=== PATIENT | female | born 1950 | race Caucasian/White ===

== ENCOUNTER 2016-08-17 03:58 | Emergency (ER) | payer BC, MEDICARE ==
[2016-08-17 04:06] VITALS: BP 131/59
--- NOTE | 2016-08-17 04:44 | EDM.PDOC ---
ED HPI GENERAL MEDICAL PROBLEM - General Chief Complaint: General Stated Complaint: Burning Sensation in body Time Seen by Provider: 08/17/16 04:25 Source of Information: Reports: Patient History Limitations: Reports: No limitations - History of Present Illness INITIAL COMMENTS - FREE TEXT/NARRATIVE: 66 YO WF presents to ER with an episode of feeling a burning sensation allover her body which lasted for approximately 3 minutes. Pt reports the last time she had an episode similar to this was 2 years ago when she was diagnosed with atrial fibrillation. Pt denies any chest pain, shortness of breath, diaphoresis , dizziness or palpitations. Pt reports she was recently on a 30 day event/ holter monitor by her perioperative nurse and was told there was nothing wrong with her heart. Pt was started on amoxil for upper respiratory tract infection 5 days ago and is wondering if that could have been the cause of her symptoms. Pt denies any fever/chills and states her URI symptoms are improving. Pt reports a history of anxiety/panic attacks in the past as well. Onset: today Onset Date: 08/17/16 Onset Time: 03:30 Duration: Minutes:, Resolved prior to arrival Location: Reports: generalized Quality: Reports: Burning Severity: mild Improves with: Reports: None Worsens with: Reports: None Associated Symptoms: Reports: no other symptoms - Related Data Allergies Allergy/AdvReac Type Severity Reaction Status Date / Time lisinopril Allergy Cough Verified 08/17/16 04:01 Home Meds: Home Meds Olmesartan Medoxomil [Benicar] 10 mg PO DAILY 05/13/13 [History] Escitalopram [Lexapro] 10 mg PO DAILY 05/21/13 [History] Metoprolol Tartrate 12.5 mg PO BEDTIME 05/21/13 [History] Cinnamon Bark [Cinnamon] 500 mg PO DAILY 07/01/14 [History] Fish Oil/[place]-3 Fatty Acids [Fish Oil] 3 gm PO DAILY 07/01/14 [History] Magnesium Oxide/Mag AA Chelate [Magnesium] 300 mg PO DAILY 07/01/14 [History] Multivitamin [Multiple Vitamins] 1 each PO DAILY 07/01/14 [History] Cholecalciferol (Vitamin D3) [Vitamin D3] 50,000 unit PO ASDIRECTED 12/19/15 [ History] ALPRAZolam [Alprazolam] 0.5 mg PO DAILY PRN 01/04/17 [History] Diltiazem [Cardizem CD] 120 mg PO DAILY 05/01/16 [History] Rivaroxaban [Xarelto] 20 mg PO DAILY 05/01/16 [History] Amoxicillin [Amoxicillin] 500 mg PO TID 08/17/16 [History] Past Medical History HEENT History: Reports: Impaired vision Cardiovascular History: Reports: Afib, Arrhythmia, Hypertension, Other (see below) Other Cardiovascular History: States she has "an extra beat." Psychiatric History: Reports: Anxiety, Depression Endocrine/Metabolic History: Reports: Obesity/BMI 30+ - Infectious Disease History Infectious Disease History: Reports: Chicken pox, Mumps - Past Surgical History Cardiovascular Surgical History: Reports: None GI Surgical History: Reports: Cholecystectomy Female Surgical History: Reports: Hysterectomy Social & Family History - Family History HEENT: Reports: None Cardiac: Reports: Other (see below) (Father with diabetes heart disease and hypertension, sister with heart disease, brother with heart disease hypertension, asthma,) Respiratory: Reports: Asthma GI: Reports: None : Reports: None OBGYN: Reports: None Neurological: Reports: None Psychiatric: Reports: None Endocrine/Metabolic: Reports: Diabetes, type II Immunologic: Reports: None Dermatologic: Reports: None Oncologic: Reports: None - Tobacco Use Smoking Status *Q: Never Smoker Years of Tobacco use: 2 Second Hand Smoke Exposure: No - Caffeine Use Caffeine Use Comment: rare coffee use - Alcohol Use Days Per Week of Alcohol Use: 0 - Recreational Drug Use Recreational Drug Use: No - Living Situation & Occupation Living situation: Reports: , with spouse ED ROS GENERAL - Review of Systems Review Of Systems: See Below Constitutional: Reports: no symptoms HEENT: Reports: Rhinitis Respiratory: Reports: No Symptoms Cardiovascular: Reports: No symptoms Endocrine: Reports: no symptoms GI/Abdominal: Reports: No symptoms : Reports: no symptoms Musculoskeletal: Reports: no symptoms Skin: Reports: no symptoms Neurological: Reports: No Symptoms Psychiatric: Reports: No symptoms Hematologic/Lymphatic: Reports: no symptoms Immunologic: Reports: no symptoms ED EXAM, GENERAL - Physical Exam Exam: See Below Exam Limited By: No limitations General Appearance: alert, WD/WN, no apparent distress Eye Exam: bilateral eye: PERRL Ears: normal external exam, normal canal, hearing grossly normal, normal TMs Ear Exam: bilateral ear: auricle normal, canal normal, TM normal Nose: normal inspection, normal mucosa, no blood Throat/Mouth: Normal inspection, Normal lips, Normal teeth, Normal gums, Normal oropharynx, Normal voice, No airway compromise Head: atraumatic, normocephalic Neck: normal inspection, supple, non-tender, full range of motion Respiratory/Chest: no respiratory distress, lungs clear, normal breath sounds, no accessory muscle use, chest non-tender Cardiovascular: normal peripheral pulses, regular rate, rhythm, no edema, no gallop, no JVD, no murmur, no rub GI/Abdominal: normal bowel sounds, soft, non tender, no organomegaly, no distention, no abnormal bruit, no mass (Female) Exam: Normal external exam, Normal speculum exam, Normal bimanual exam Back Exam: normal inspection, full range of motion, NT Extremities: normal inspection, normal range of motion, non-tender, normal capillary refill, no pedal edema Neurological: alert, oriented, CN II-XII intact, normal cognition, normal gait, normal reflexes, no motor/sensory deficits Psychiatric: normal affect, normal mood Skin Exam: Warm, Dry, Intact, Normal color, No rash Lymphatic: no adenopathy EKG INTERPRETATION EKG Date: 08/17/16 Time: 04:04 Rhythm: NSR Rate (beats/min): 68 [place]: normal P-wave: present QRS: normal ST-T: normal QT: normal Comparison: NA - no prior EKG Course - Vital Signs Last Recorded V/S: Last Vital Signs Temp 36.4 C 08/17/16 04:03 Pulse 72 08/17/16 04:03 Resp 18 08/17/16 04:03 BP 131/59 L 08/17/16 04:03 Pulse Ox 96 08/17/16 04:03 Departure - Departure Time of Disposition: 04:47 Disposition: Home, Self-Care 01 Condition: good Clinical Impression: Anxiety Instructions: Hyperventilation Referrals: Maria M Barnes PA-C [Physician] - Forms: ED Department Discharge - Assessment/Plan Assessment:: 1. burning sensation in body 2. anxiety Plan: 1. follow up in clinic for further evaluation and treatment 2. return to ER for worsening or continued symptoms
== END 2016-08-17 05:00 | disposition home or self-care (01) ==
LOC: KA.ED 03:58
DX: F41.9 Anxiety disorder, unspecified (principal); I48.91 Unspecified atrial fibrillation; I10 Essential (primary) hypertension; F32.9 Major depressive disorder, single episode, unspecified; E66.9 Obesity, unspecified; Z68.41 Body mass index [BMI] 40.0-44.9, adult; Z88.8 Allergy status to other drugs, medicaments and biological substances; Z79.899 Other long term (current) drug therapy; Z90.710 Acquired absence of both cervix and uterus; Z90.49 Acquired absence of other specified parts of digestive tract
CPT/HCPCS: 93005; 99283

== ENCOUNTER 2017-10-28 02:15 | Emergency (ER) | payer BC, MEDICARE ==
[2017-10-28 02:18] VITALS: BP 148/81
--- NOTE | 2017-10-28 02:59 | EDM.PDOC ---
ED HPI GENERAL MEDICAL PROBLEM - General Chief Complaint: General Stated Complaint: anxiety Time Seen by Provider: 10/28/17 02:38 Source of Information: Reports: Patient History Limitations: Reports: No Limitations - History of Present Illness INITIAL COMMENTS - FREE TEXT/NARRATIVE: Patient is a 67-year-old female who presents to the emergency department this morning with a complaint of anxiety attack. Patient states that her is having issues with his family and so she feels anxious. States she took a Lexapro at midnight, went to sleep and awoke at 145 a.m. where she took another Lexapro. Patient decided to present to the emergency department. Patient states she is actually feeling better now. Patient denies chest pain, shortness of breath, fever, nausea, vomiting, diarrhea, thoughts of hurting self or others. Onset: Gradual Severity: Mild Improves with: Reports: Medication Worsens with: Reports: None Associated Symptoms: Reports: No Other Symptoms - Related Data Allergies Allergy/AdvReac Type Severity Reaction Status Date / Time lisinopril Allergy Cough Verified 10/28/17 02:17 Home Meds: Home Meds Olmesartan Medoxomil [Benicar] 10 mg PO DAILY 05/13/13 [History] Escitalopram [Lexapro] 10 mg PO DAILY 05/21/13 [History] Metoprolol Tartrate 12.5 mg PO BEDTIME 05/21/13 [History] Cinnamon Bark [Cinnamon] 500 mg PO DAILY 07/01/14 [History] Fish Oil/[place]-3 Fatty Acids [Fish Oil] 3 gm PO DAILY 07/01/14 [History] Magnesium Oxide/Mag AA Chelate [Magnesium] 300 mg PO DAILY 07/01/14 [History] Multivitamin [Multiple Vitamins] 1 each PO DAILY 07/01/14 [History] Cholecalciferol (Vitamin D3) [Vitamin D3] 50,000 unit PO ASDIRECTED 12/19/15 [ History] ALPRAZolam [Alprazolam] 0.5 mg PO DAILY PRN 05/01/16 [History] Diltiazem [Cardizem CD] 120 mg PO DAILY 05/01/16 [History] Rivaroxaban [Xarelto] 20 mg PO DAILY 05/01/16 [History] Amoxicillin 500 mg PO TID 08/17/16 [History] Past Medical History HEENT History: Reports: Impaired Vision Cardiovascular History: Reports: Afib, Arrhythmia, Hypertension, Other (See Below) Other Cardiovascular History: States she has "an extra beat." Psychiatric History: Reports: Anxiety, Depression Endocrine/Metabolic History: Reports: Obesity/BMI 30+ - Infectious Disease History Infectious Disease History: Reports: Chicken Pox, Mumps - Past Surgical History Cardiovascular Surgical History: Reports: None GI Surgical History: Reports: Cholecystectomy Female Surgical History: Reports: Hysterectomy Social & Family History - Family History HEENT: Reports: None Cardiac: Reports: Other (See Below) Respiratory: Reports: Asthma GI: Reports: None : Reports: None OBGYN: Reports: None Neurological: Reports: None Psychiatric: Reports: None Endocrine/Metabolic: Reports: Diabetes, type II Immunologic: Reports: None Dermatologic: Reports: None Oncologic: Reports: None - Caffeine Use Caffeine Use Comment: rare coffee use - Living Situation & Occupation Living situation: Reports: , with Spouse ED ROS GENERAL - Review of Systems Review Of Systems: ROS reveals no pertinent complaints other than HPI. Constitutional: Reports: No Symptoms HEENT: Reports: No Symptoms Respiratory: Reports: No Symptoms Cardiovascular: Reports: No Symptoms Endocrine: Reports: No Symptoms GI/Abdominal: Reports: No Symptoms : Reports: No Symptoms Musculoskeletal: Reports: No Symptoms Skin: Reports: No Symptoms Neurological: Reports: No Symptoms Psychiatric: Reports: Anxiety. Denies: Agitation, Confusion, Hallucinations, Homicidal Ideation, Suicidal Ideation Hematologic/Lymphatic: Reports: No Symptoms Immunologic: Reports: No Symptoms ED EXAM, GENERAL - Physical Exam Exam: See Below Exam Limited By: No Limitations General Appearance: Alert, WD/WN, No Apparent Distress Eye Exam: Bilateral Eye: Normal Inspection Throat/Mouth: Normal Inspection, Normal Oropharynx, No Airway Compromise Head: Atraumatic, Normocephalic Neck: Normal Inspection Respiratory/Chest: No Respiratory Distress, Lungs Clear, Normal Breath Sounds, No Accessory Muscle Use, Chest Non-Tender Cardiovascular: Normal Peripheral Pulses, Regular Rate, Rhythm, No Murmur GI/Abdominal: Normal Bowel Sounds, Soft, Non-Tender Back Exam: Normal Inspection Extremities: Normal Inspection, No Pedal Edema Neurological: Alert, Oriented, CN II-XII Intact, No Motor/Sensory Deficits Psychiatric: Normal Affect, Normal Mood, Other (Resting comfortably) Skin Exam: Warm, Dry, Intact, Normal Color, No Rash Course - Vital Signs Last Recorded V/S: Last Vital Signs Temp 97.3 F 10/28/17 02:17 Pulse 78 10/28/17 02:17 Resp 16 10/28/17 02:17 BP 148/81 H 10/28/17 02:17 Pulse Ox 93 L 10/28/17 02:17 - Re-Assessments/Exams Free Text/Narrative Re-Assessment/Exam: 10/28/17 03:09 Patient afebrile, nontoxic appearing, vital signs stable. Feels better after discussing her situation with me and is requesting to go home. Patient works at [employer] [employer] and is working this morning and assured me that she will discuss her condition with the provider there. Departure - Departure Time of Disposition: 03:10 Disposition: Home, Self-Care 01 Condition: Good Clinical Impression: Anxiety - Discharge Information Instructions: Panic Attack, [id number], Generalized Anxiety Disorder, Adult Referrals: Maria M Barnes PA-C [Primary Care Provider] - Additional Instructions: Follow-up at [facility]. Return to emergency department if symptoms continue or worsen. - Assessment/Plan Assessment:: Anxiety Plan: Follow-up at [facility]
== END 2017-10-28 03:15 | disposition home or self-care (01) ==
LOC: KA.ED 02:15
DX: F41.9 Anxiety disorder, unspecified (principal); I48.91 Unspecified atrial fibrillation; F32.9 Major depressive disorder, single episode, unspecified; Z88.8 Allergy status to other drugs, medicaments and biological substances; Z79.899 Other long term (current) drug therapy
CPT/HCPCS: 99283

== ENCOUNTER 2019-10-19 20:19 | Emergency (ER) | payer BC ==
--- NOTE | 2019-10-19 20:51 | EDM.PDOC ---
ED HPI GENERAL MEDICAL PROBLEM - General Chief Complaint: General Stated Complaint: Rapid heart rate Time Seen by Provider: 10/19/19 20:46 Source of Information: Reports: Patient History Limitations: Reports: No Limitations - History of Present Illness INITIAL COMMENTS - FREE TEXT/NARRATIVE: Patient is a 69-year-old female who presents to the emergency department this evening via private vehicle with a complaint of rapid heart rate. Patient states that she took a pill that was given to her by the local chiropractor for anxiety. Reading the ingredients. There is ginseng and other stimulants. does have a history of atrial fibrillation is currently on metoprolol. States she took the medicine about 1900 this evening, shortly thereafter she felt shaky and heart racing. She states that she did not have shortness of breath, chest pain, diaphoresis, nausea, vomiting, or headache. Upon presentation to emergency department, symptoms gradually subsided and vital s igns were within normal limits. Onset: Today Onset Time: 19:00 Duration: Hour(s):, Improving Location: Reports: Chest Quality: Reports: Other (Denies pain) Severity: Mild Improves with: Reports: Other (Spontaneously) Associated Symptoms: Reports: No Other Symptoms. Denies: Chest Pain, Cough, Diaphoresis, Fever/Chills, Nausea/Vomiting, Shortness of Breath, Weakness - Related Data Allergies Allergy/AdvReac Type Severity Reaction Status Date / Time lisinopril Allergy Cough Verified 10/19/19 20:21 Home Meds: Home Meds Olmesartan Medoxomil [Benicar] 10 mg PO DAILY 05/13/13 [History] Escitalopram [Lexapro] 10 mg PO DAILY 05/21/13 [History] Metoprolol Tartrate 12.5 mg PO DAILY 05/21/13 [History] Cinnamon Bark [Cinnamon] 500 mg PO DAILY 07/01/14 [History] Fish Oil/[place]-3 Fatty Acids [Fish Oil 1,000 MG] 3,600 mg PO DAILY 07/01/14 [History] Magnesium Oxide/Magnesium [Magnesium] 300 mg PO DAILY 07/01/14 [History] ALPRAZolam [Alprazolam] 0.5 mg PO BID PRN 05/01/16 [History] Diltiazem [Cardizem CD] 120 mg PO DAILY 05/01/16 [History] Rivaroxaban [Xarelto] 20 mg PO DAILY 05/01/16 [History] Ubidecarenone [Co Q-10] 100 mg PO DAILY 11/27/17 [History] Vitamin A 1 tab PO DAILY 11/27/17 [History] Vitamin B Complex [B Complex] 2 tab PO DAILY 11/27/17 [History] Vitamin E 1 tab PO DAILY 11/27/17 [History] Ascorbate Calcium [Vitamin C] 500 mg PO DAILY 03/13/18 [History] Cholecalciferol (Vitamin D3) [Vitamin D3] 5,000 unit PO DAILY 03/13/18 [History] Hydrocort/Neomycin/Polymyxin B [Cortisporin Otic Soln] 5 drop EARBOTH DAILY PRN 03/13/18 [History] Past Medical History HEENT History: Reports: Cataract, Impaired Vision Cardiovascular History: Reports: Afib, Arrhythmia, Hypertension Other Cardiovascular History: States she has "an extra beat." Respiratory History: Reports: Bronchitis, Recurrent, Pneumonia, Recurrent Gastrointestinal History: Reports: None Genitourinary History: Reports: None Musculoskeletal History: Reports: None Neurological History: Reports: None Psychiatric History: Reports: Anxiety, Depression, Panic Attack Endocrine/Metabolic History: Reports: Obesity/BMI 30+, Vitamin D Deficiency Hematologic History: Reports: None Immunologic History: Reports: None Oncologic (Cancer) History: Reports: None Dermatologic History: Reports: None - Infectious Disease History Infectious Disease History: Reports: Chicken Pox, Measles, Mononucleosis, Pertussis (Whooping Cough) - Past Surgical History Head Surgeries/Procedures: Reports: None HEENT Surgical History: Reports: Cataract Surgery, Oral Surgery Cardiovascular Surgical History: Reports: None Respiratory Surgical History: Reports: None GI Surgical History: Reports: Cholecystectomy Female Surgical History: Reports: Hysterectomy Endocrine Surgical History: Reports: None Neurological Surgical History: Reports: None Musculoskeletal Surgical History: Reports: None Oncologic Surgical History: Reports: None Dermatological Surgical History: Reports: None Social & Family History - Family History HEENT: Reports: None Cardiac: Reports: Other (See Below) Respiratory: Reports: Asthma GI: Reports: None : Reports: None OBGYN: Reports: None Neurological: Reports: None Psychiatric: Reports: None Endocrine/Metabolic: Reports: Diabetes, type II Immunologic: Reports: None Dermatologic: Reports: None Oncologic: Reports: None - Caffeine Use Caffeine Use: Reports: Coffee Caffeine Use Comment: rare coffee use - Living Situation & Occupation Living situation: Reports: , with Spouse ED ROS GENERAL - Review of Systems Review Of Systems: Comprehensive ROS is negative, except as noted in HPI. Constitutional: Reports: No Symptoms HEENT: Reports: No Symptoms Respiratory: Reports: No Symptoms Cardiovascular: Reports: Palpitations Endocrine: Reports: No Symptoms GI/Abdominal: Reports: No Symptoms : Reports: No Symptoms Musculoskeletal: Reports: No Symptoms Skin: Reports: No Symptoms Neurological: Reports: No Symptoms Psychiatric: Reports: No Symptoms Hematologic/Lymphatic: Reports: No Symptoms Immunologic: Reports: No Symptoms ED EXAM, GENERAL - Physical Exam Exam: See Below Exam Limited By: No Limitations General Appearance: Alert, WD/WN, No Apparent Distress Nose: Normal Inspection Throat/Mouth: Normal Inspection, Normal Oropharynx, No Airway Compromise Head: Atraumatic, Normocephalic Respiratory/Chest: No Respiratory Distress, Lungs Clear, Normal Breath Sounds, No Accessory Muscle Use, Chest Non-Tender Cardiovascular: Regular Rate, Rhythm, No Murmur GI/Abdominal: Normal Bowel Sounds, Soft, Non-Tender Back Exam: Normal Inspection Extremities: Normal Inspection, No Pedal Edema Neurological: Alert, Oriented, Normal Cognition Psychiatric: Normal Affect, Normal Mood Skin Exam: Warm, Dry, Intact, Normal Color, No Rash Course - Vital Signs Last Recorded V/S: Last Vital Signs Temp 97.3 F 10/19/19 20:37 Pulse 85 10/19/19 20:37 Resp 24 H 10/19/19 20:37 BP 157/90 H 10/19/19 20:37 Pulse Ox 96 10/19/19 20:37 - Orders/Labs/Meds Orders: Active Orders 24 hr Category Date Time Status EKG Documentation Completion [RC] ASDIRECTED Care 10/19/19 20:41 Active EKG 12 Lead [EK] Urgent Ther 10/19/19 20:25 Ordered - Re-Assessments/Exams Free Text/Narrative Re-Assessment/Exam: 10/19/19 20:51 Patient afebrile, vital signs stable, nontoxic appearing, symptoms completely resolved. Discussed in depth with patient taking any kind of [id number] stimulants that could cause recurrent atrial fibrillation. Patient received this medication from local chiropractor. Patient agrees to not continue taking medication. Patient will follow-up with PCP. Departure - Departure Time of Disposition: 20:52 Disposition: Home, Self-Care 01 Clinical Impression: Palpitation - Discharge Information Referrals: Maria M Barnes PA-C [Primary Care Provider] - Additional Instructions: Discontinue [id number] medication. Take prescribed medication as directed. Follow-up with [facility] in 2 days. Return to emergency department sooner if symptoms continue or worsen. Sepsis Event Note (ED) - Evaluation Sepsis Screening Result: No Definite Risk - Focused Exam Vital Signs: Vital Signs Temp Pulse Resp BP Pulse Ox 10/19/19 20:37 97.3 F 85 24 H 157/90 H 96 - My Orders Last 24 Hours: My Active Orders 10/19/19 20:25 EKG 12 Lead [EK] Urgent 10/19/19 20:41 EKG Documentation Completion [RC] ASDIRECTED - Assessment/Plan Last 24 Hours: My Active Orders 10/19/19 20:25 EKG 12 Lead [EK] Urgent 10/19/19 20:41 EKG Documentation Completion [RC] ASDIRECTED Assessment:: Palpitations Plan: Follow-up with PCP
[2019-10-19 21:13] VITALS: BP 130/66; PULSE 62
== END 2019-10-19 21:08 | disposition home or self-care (01) ==
LOC: KA.ED 20:19
DX: R00.2 Palpitations (principal); I10 Essential (primary) hypertension; I48.91 Unspecified atrial fibrillation; F41.9 Anxiety disorder, unspecified; F32.9 Major depressive disorder, single episode, unspecified; E66.9 Obesity, unspecified; Z68.41 Body mass index [BMI] 40.0-44.9, adult; Z88.8 Allergy status to other drugs, medicaments and biological substances; Z79.899 Other long term (current) drug therapy; Z79.01 Long term (current) use of anticoagulants
CPT/HCPCS: 99284-25

== ENCOUNTER 2021-02-08 02:02 | Emergency (ER) | payer BC ==
--- NOTE | 2021-02-08 02:50 | EDM.PDOC ---
ED HPI GENERAL MEDICAL PROBLEM - General Chief Complaint: General Stated Complaint: PALPITATIONS Time Seen by Provider: 02/08/21 02:15 Source of Information: Reports: Patient History Limitations: Reports: No Limitations - History of Present Illness INITIAL COMMENTS - FREE TEXT/NARRATIVE: 70 YO WF PRESENTS TO ER COMPLAINING OF PALPITATIONS THAT BEGAN AROUND 11PM TONIGHT. PT REPORTS HER PALPITATIONS LASTED ON/OFF FOR LESS THAN AN HOUR. PT DENIES RACING HEART BEAT. PT REPORTS SYMPTOMS HAVE RESOLVED. PT CALLED HER AT WORK AND HE SUGGESTED SHE GO TO ER FOR FURTHER EVALUATION. PT WITH HISTORY OF SIMILAR IN THE PAST WITH EACH OF THESE BEGIN RELATED TO SOME ANXIETY COMPONENT. PT TAKES VISTARIL WHEN SYMPTOMS OCCUR. PT REPORTS TAKING HER VISTARIL THIS EVENING AND SHE BELIEVES THAT'S WHY SHE IS FEELING BETTER. PT DENIES CHEST PAIN, SHORTNESS OF BREATH, DIAPHORESIS, NAUSEA/VOMITING OR DIZZINESS. PT STATES SHE FEELS BETTER AND WANTS TO GO HOME. REQUESTING A WORK EXCUSE. PT ALERT AND ORIENTED X 4. Onset Date: 02/08/21 Duration: Hour(s): (4) Location: Reports: Generalized Severity: Mild Improves with: Reports: Medication Worsens with: Reports: None Associated Symptoms: Reports: No Other Symptoms. Denies: Chest Pain, Diaphoresis, Nausea/Vomiting, Shortness of Breath, Syncope - Related Data Allergies Allergy/AdvReac Type Severity Reaction Status Date / Time lisinopril Allergy Cough Verified 02/08/21 02:43 Home Meds: Home Meds Olmesartan Medoxomil [Benicar] 10 mg PO DAILY 05/13/13 [History] Escitalopram [Lexapro] 10 mg PO DAILY 05/21/13 [History] Metoprolol Tartrate 12.5 mg PO DAILY 05/21/13 [History] Cinnamon Bark [Cinnamon] 500 mg PO DAILY 07/01/14 [History] Fish Oil/[place]-3 Fatty Acids [Fish Oil 1,000 MG] 3,600 mg PO DAILY 07/01/14 [History] Magnesium Oxide/Magnesium [Magnesium] 300 mg PO DAILY 07/01/14 [History] Diltiazem [Cardizem CD] 120 mg PO DAILY 05/01/16 [History] Rivaroxaban [Xarelto] 20 mg PO DAILY 05/01/16 [History] Ubidecarenone [Co Q-10] 100 mg PO DAILY 11/27/17 [History] Vitamin A 1 tab PO DAILY 11/27/17 [History] Vitamin B Complex [B Complex] 2 tab PO DAILY 11/27/17 [History] Vitamin E (Dl,Tocopheryl Acet) [Vitamin E] 1 tab PO DAILY 11/27/17 [History] Ascorbate Calcium [Vitamin C] 500 mg PO DAILY 03/13/18 [History] Cholecalciferol (Vitamin D3) [Vitamin D3] 5,000 unit PO DAILY 03/13/18 [History] Hydrocort/Neomycin/Polymyxin B [Cortisporin Otic Soln] 5 drop EARBOTH DAILY PRN 03/13/18 [History] hydrOXYzine pamoate [Hydroxyzine Pamoate] 25 mg PO QID PRN 10/19/19 [History] Past Medical History HEENT History: Reports: Cataract, Impaired Vision Cardiovascular History: Reports: Afib, Arrhythmia, Hypertension Other Cardiovascular History: States she has "an extra beat." Respiratory History: Reports: Bronchitis, Recurrent, Pneumonia, Recurrent Gastrointestinal History: Reports: None Genitourinary History: Reports: None Musculoskeletal History: Reports: None Neurological History: Reports: None Psychiatric History: Reports: Anxiety, Depression, Panic Attack Endocrine/Metabolic History: Reports: Obesity/BMI 30+, Vitamin D Deficiency Hematologic History: Reports: None Immunologic History: Reports: None Oncologic (Cancer) History: Reports: None Dermatologic History: Reports: None - Infectious Disease History Infectious Disease History: Reports: Chicken Pox, Measles, Mononucleosis, Pertussis (Whooping Cough) - Past Surgical History Head Surgeries/Procedures: Reports: None HEENT Surgical History: Reports: Cataract Surgery, Oral Surgery Cardiovascular Surgical History: Reports: None Respiratory Surgical History: Reports: None GI Surgical History: Reports: Cholecystectomy Female Surgical History: Reports: Hysterectomy Endocrine Surgical History: Reports: None Neurological Surgical History: Reports: None Musculoskeletal Surgical History: Reports: None Oncologic Surgical History: Reports: None Dermatological Surgical History: Reports: None Social & Family History - Family History HEENT: Reports: None Cardiac: Reports: Other (See Below) Respiratory: Reports: Asthma GI: Reports: None : Reports: None OBGYN: Reports: None Neurological: Reports: None Psychiatric: Reports: None Endocrine/Metabolic: Reports: Diabetes, type II Immunologic: Reports: None Dermatologic: Reports: None Oncologic: Reports: None - Caffeine Use Caffeine Use: Reports: None Caffeine Use Comment: rare coffee use - Living Situation & Occupation Living situation: Reports: , with Spouse ED ROS GENERAL - Review of Systems Review Of Systems: See Below Constitutional: Reports: No Symptoms HEENT: Reports: No Symptoms Respiratory: Reports: No Symptoms Cardiovascular: Reports: Palpitations Endocrine: Reports: No Symptoms GI/Abdominal: Reports: No Symptoms : Reports: No Symptoms Musculoskeletal: Reports: No Symptoms Skin: Reports: No Symptoms Neurological: Reports: No Symptoms Psychiatric: Reports: Anxiety Hematologic/Lymphatic: Reports: No Symptoms Immunologic: Reports: No Symptoms ED EXAM, GENERAL - Physical Exam Exam: See Below Exam Limited By: No Limitations General Appearance: Alert, WD/WN, No Apparent Distress Ears: Normal External Exam, Normal Canal, Hearing Grossly Normal, Normal TMs Ear Exam: Bilateral Ear: Auricle Normal, Canal Normal, TM normal Nose: Normal Inspection, Normal Mucosa, No Blood Throat/Mouth: Normal Inspection, Normal Lips, Normal Teeth, Normal Gums, Normal Oropharynx, Normal Voice, No Airway Compromise Head: Atraumatic, Normocephalic Neck: Normal Inspection, Supple, Non-Tender, Full Range of Motion Respiratory/Chest: No Respiratory Distress, Lungs Clear, Normal Breath Sounds, No Accessory Muscle Use, Chest Non-Tender Cardiovascular: Normal Peripheral Pulses, Regular Rate, Rhythm, No Edema, No Gallop, No JVD, No Murmur, No Rub GI/Abdominal: Normal Bowel Sounds, Soft, Non-Tender, No Organomegaly, No Distention, No Abnormal Bruit, No Mass Back Exam: Normal Inspection, Full Range of Motion, NT Extremities: Normal Inspection, Normal Range of Motion, Non-Tender, Normal Capillary Refill, No Pedal Edema Neurological: Alert, Oriented, CN II-XII Intact, Normal Cognition, Normal Gait, No Motor/Sensory Deficits Psychiatric: Normal Affect, Anxious Skin Exam: Warm, Dry, Intact, Normal Color, No Rash Lymphatic: No Adenopathy #1 Interpretation EKG Date: 02/08/21 Time: 02:28 Rhythm: NSR Rate (Beats/Min): 61 [place]: Normal P-Wave: Present QRS: Normal ST-T: Normal QT: Normal Comparison: No Change Course - Orders/Labs/Meds Orders: Active Orders 24 hr Category Date Time Status EKG 12 Lead [EK] Stat Ther 02/08/21 02:20 Ordered Departure - Departure Time of Disposition: 02:54 Disposition: Home, Self-Care 01 Condition: Good Clinical Impression: Anxiety, Palpitation - Discharge Information Instructions: Managing Anxiety, Adult Referrals: Maria M Barnes PA-C [Primary Care Provider] - Forms: ED Department Discharge, ED Return to Work/School Form Additional Instructions: 1. DISCHARGE HOME 2. AVOID STIMULANTS- [place] 3. CONTINUE YOUR VISTARIL NEEDED 4. RETURN TO ER FOR RAPID HEART RATE OR WORSENING SYMPTOMS 5. FOLLOW UP WITH PCP FOR FURTHER EVALUATION NEEDED - My Orders Last 24 Hours: My Active Orders 02/08/21 02:20 EKG 12 Lead [EK] Stat - Assessment/Plan Last 24 Hours: My Active Orders 02/08/21 02:20 EKG 12 Lead [EK] Stat Assessment:: 1. ANXIETY DISORDER Plan: 1. DISCHARGE HOME 2. AVOID STIMULANTS- [place] 3. CONTINUE YOUR VISTARIL NEEDED 4. RETURN TO ER FOR RAPID HEART RATE OR WORSENING SYMPTOMS 5. FOLLOW UP WITH PCP FOR FURTHER EVALUATION NEEDED
[2021-02-08 05:30] VITALS: PULSE 60
[2021-02-08 05:31] VITALS: BP 137/67
== END 2021-02-08 03:08 | disposition home or self-care (01) ==
LOC: KA.ED 02:02
DX: R00.2 Palpitations (principal); F41.9 Anxiety disorder, unspecified; I48.91 Unspecified atrial fibrillation; I10 Essential (primary) hypertension; E66.9 Obesity, unspecified; Z68.39 Body mass index [BMI] 39.0-39.9, adult; Z88.8 Allergy status to other drugs, medicaments and biological substances; Z79.01 Long term (current) use of anticoagulants; Z79.899 Other long term (current) drug therapy
CPT/HCPCS: 93005; 99284-25

== ENCOUNTER 2021-11-16 20:33 | Emergency (ER) | payer BC ==
[2021-11-16] MEDS: Sodium Chloride 0.9% 10 ML Syringe FLUSH PRN (21:42)
[2021-11-16 22:23] LABS: CHLORIDE,CL 104 mmol/L (98-107); ESTIMATED GFR 64 mL/min (>=60); SODIUM,NA 139 mmol/L (136-145)
[2021-11-17 01:17] VITALS: BP 140/73; PULSE 67
== END 2021-11-17 01:30 | disposition home or self-care (01) ==
LOC: KA.ED 20:33
DX: E86.0 Dehydration (principal); I10 Essential (primary) hypertension; E66.9 Obesity, unspecified; Z68.39 Body mass index [BMI] 39.0-39.9, adult; Z91.048 Other nonmedicinal substance allergy status; Z88.8 Allergy status to other drugs, medicaments and biological substances; Z86.16 Personal history of COVID-19; Z79.01 Long term (current) use of anticoagulants
CPT/HCPCS: 36415; 80048; 84484; 85025; 93005; 99284; J3490

== ENCOUNTER 2022-07-13 19:22 | Emergency (ER) | payer MEDICARE, BC ==
[2022-07-13 19:45] VITALS: BP 153/88; PULSE 81
[2022-07-13] MEDS ORDERED: Sodium Chloride 0.9% 10 ML Syringe FLUSH PRN (19:46)
[2022-07-13] MEDS: LORazepam 2 MG/ML SDV IVPUSH ONE (20:05)
[2022-07-13] MEDS: Ketorolac 30 MG/ML SDV IVPUSH ONE (20:05)
[2022-07-13] MEDS: Acetaminophen/HYDROcodone 325-5 MG Tab PO ONE (20:36)
[2022-07-13] MEDS: Cyclobenzaprine 10 MG Tab PO ONE (20:39)
== END 2022-07-13 20:56 | disposition home or self-care (01) ==
LOC: KA.ED 19:22
DX: M54.41 Lumbago with sciatica, right side (principal); I48.91 Unspecified atrial fibrillation; I10 Essential (primary) hypertension; E66.9 Obesity, unspecified; Z68.41 Body mass index [BMI] 40.0-44.9, adult; Z88.8 Allergy status to other drugs, medicaments and biological substances; Z91.048 Other nonmedicinal substance allergy status; Z79.899 Other long term (current) drug therapy; Z79.01 Long term (current) use of anticoagulants; Z87.891 Personal history of nicotine dependence
CPT/HCPCS: 72100; 96374; 96375; 99283-25; 99284; A9270-GY; J1885; J2060

== ENCOUNTER 2022-10-31 22:53 | Emergency (ER) | payer MEDICARE, BC ==
[2022-10-31] MEDS: Sodium Chloride 0.9% 10 ML Syringe FLUSH PRN (23:06)
[2022-10-31 23:18] LABS: BASOPHILS ABSOLUTE AUTO 0.08 10^3/uL (0.00-0.10); BASOPHILS PERCENT AUTO 0.7 % (0.0-1.0); EOSINOPHILS ABSOLUTE AUTO 0.51 10^3/uL (0.10-0.30); EOSINOPHILS PERCENT AUTO 4.7 % (1.0-3.0); HEMATOCRIT 47.8 % (37.0-47.0); HEMOGLOBIN 15.6 g/dL (12.0-16.0); IMMATURE GRAN ABSOLUTE AUTO 0.03 10^3/uL (0.00-0.50); IMMATURE GRAN PERCENT AUTO 0.3 % (0.0-5.0); LYMPHOCYTES ABSOLUTE AUTO 3.98 10^3/uL (1.00-4.00); LYMPHOCYTES PERCENT AUTO 36.5 % (20.0-40.0); MEAN CORPUSCULAR HEMOGLOBIN 28.5 pg (27.0-31.0); MEAN CORPUSCULAR HGB CONC 32.6 g/dL (32.0-36.0); MEAN CORPUSCULAR VOLUME 87.2 fL (82.0-92.0); MEAN PLATELET VOLUME 10.1 fL (7.4-10.4); MONOCYTES ABSOLUTE AUTO 0.94 10^3/uL (0.10-0.80); MONOCYTES PERCENT AUTO 8.6 % (2.0-8.0); NEUTROPHILS ABSOLUTE AUTO 5.36 10^3/uL (2.50-7.00); NEUTROPHILS PERCENT AUTO 49.2 % (50.0-70.0); PLATELET COUNT,PLT 268 10^3/uL (150-400); RED BLOOD CELL COUNT 5.48 10^6/uL (3.80-5.50); RED CELL DISTRIBUTION WIDTH 13.5 % (11.5-14.5)
[2022-10-31 23:37] LABS: ALANINE AMINOTRANSFERASE,ALT 19 U/L (14-63); ALBUMIN 3.23 g/dL (3.40-5.00); ALKALINE PHOSPHATASE 111 U/L (46-116); ANION GAP 13.4 mmol/L (5-15); ASPARTATE AMNIOTRANSFERASE,AST 12 U/L (15-37); BILIRUBIN TOTAL 0.4 mg/dL (0.2-1.0); BLOOD UREA NITROGEN,BUN 24 mg/dL (7-18); CALCIUM 8.8 mg/dL (8.7-10.3); CARBON DIOXIDE,CO2 25.4 mmol/L (21.0-32.0); CHLORIDE,CL 105 mmol/L (98-107); CREATININE 0.85 mg/dL (0.51-1.17); GLUCOSE RANDOM 142 mg/dL (70-140); POTASSIUM,K 3.8 mmol/L (3.5-5.1); SODIUM,NA 140 mmol/L (136-145)
[2022-10-31 23:38] LABS: ESTIMATED GFR 72 mL/min (>=60)
[2022-10-31 23:41] LABS: B-TYPE NATRIURETIC PEPTIDE,BNP 30 pg/mL (0-100)
[2022-11-01 02:14] VITALS: BP 143/72; PULSE 56
== END 2022-11-01 00:02 | disposition home or self-care (01) ==
LOC: KA.ED 22:53
DX: R00.2 Palpitations (principal); R73.9 Hyperglycemia, unspecified; I10 Essential (primary) hypertension; I48.91 Unspecified atrial fibrillation; E66.9 Obesity, unspecified; Z79.01 Long term (current) use of anticoagulants; Z86.16 Personal history of COVID-19; Z88.8 Allergy status to other drugs, medicaments and biological substances; Z91.09 Other allergy status, other than to drugs and biological substances; Z79.899 Other long term (current) drug therapy; Z68.41 Body mass index [BMI] 40.0-44.9, adult
CPT/HCPCS: 36415; 71045; 80053; 83880; 84484; 85025; 93010; 99284; 99285; J3490

== ENCOUNTER 2023-08-31 14:57 | Emergency (ER) | payer BC, MEDICARE ==
[2023-08-31] MEDS ORDERED: Sodium Chloride 0.9% 10 ML Syringe FLUSH PRN (15:10)
[2023-08-31 15:16] LABS: BASOPHILS ABSOLUTE AUTO 0.06 10^3/uL (0.00-0.10); BASOPHILS PERCENT AUTO 0.5 % (0.0-1.0); EOSINOPHILS ABSOLUTE AUTO 0.02 10^3/uL (0.10-0.30); EOSINOPHILS PERCENT AUTO 0.2 % (1.0-3.0); HEMATOCRIT 35.1 % (37.0-47.0); HEMOGLOBIN 11.7 g/dL (12.0-16.0); IMMATURE GRAN ABSOLUTE AUTO 0.05 10^3/uL (0.00-0.50); IMMATURE GRAN PERCENT AUTO 0.4 % (0.0-5.0); LYMPHOCYTES ABSOLUTE AUTO 3.04 10^3/uL (1.00-4.00); LYMPHOCYTES PERCENT AUTO 23.4 % (20.0-40.0); MEAN CORPUSCULAR HEMOGLOBIN 29.5 pg (27.0-31.0); MEAN CORPUSCULAR HGB CONC 33.3 g/dL (32.0-36.0); MEAN CORPUSCULAR VOLUME 88.4 fL (82.0-92.0); MONOCYTES PERCENT AUTO 4.6 % (2.0-8.0); NEUTROPHILS PERCENT AUTO 70.9 % (50.0-70.0); PLATELET COUNT,PLT 272 10^3/uL (150-400); RED BLOOD CELL COUNT 3.97 10^6/uL (3.80-5.50); RED CELL DISTRIBUTION WIDTH 13.6 % (11.5-14.5); WHITE BLOOD CELL COUNT,WBC 12.97 10^3/uL (5.00-10.00)
[2023-08-31 15:34] LABS: CARBON DIOXIDE,CO2 19.3 mmol/L (21.0-32.0)
[2023-08-31 15:35] LABS: ALANINE AMINOTRANSFERASE,ALT 21 U/L (14-63); ALBUMIN 2.72 g/dL (3.40-5.00); ALKALINE PHOSPHATASE 67 U/L (46-116); ASPARTATE AMNIOTRANSFERASE,AST 23 U/L (15-37); BILIRUBIN TOTAL 0.4 mg/dL (0.2-1.0); CALCIUM 8.2 mg/dL (8.7-10.3); CREATININE 0.65 mg/dL (0.51-1.17); GLUCOSE RANDOM 182 mg/dL (70-140); PROTEIN TOTAL,TP 5.9 g/dL (6.4-8.2)
[2023-08-31 15:38] LABS: ANION GAP 15.1 mmol/L (5-15); CHLORIDE,CL 108 mmol/L (98-107); INR 1.2 (0.9-1.1); POTASSIUM,K 4.4 mmol/L (3.5-5.1); PROTHROMBIN TIME 12.6 SEC (9.3-12.2); PTT,PARTIAL THROMBOPLSTIN TIME 24.6 SEC (23.3-34.9); SODIUM,NA 138 mmol/L (136-145)
[2023-08-31 15:41] LABS: BLOOD UREA NITROGEN,BUN 50 mg/dL (7-18); ESTIMATED GFR 92 mL/min (>=60)
[2023-08-31 15:42] VITALS: BP 128/71; PULSE 116
[2023-08-31] MEDS: Sodium Chloride 0.9% 50 ML IV SCH (16:04)
[2023-08-31] MEDS: Iopamidol 755 Mg/ML 100 ML Bottle IV ONE (16:04)
[2023-08-31] MEDS: Sodium Chloride 0.9% 1,000 ML IV ONE (16:52)
[2023-08-31] MEDS: Pantoprazole 40 MG Vial IVPUSH ONE (16:52)
[2023-08-31] MEDS: Lactated Ringers 500 ML IV ONE (17:00)
[2023-08-31] MEDS: Lactated Ringers 1,000 ML IV ONE (17:31)
== END 2023-08-31 17:13 ==
LOC: KA.ED 14:57
DX: K92.2 Gastrointestinal hemorrhage, unspecified (principal); I10 Essential (primary) hypertension; I48.91 Unspecified atrial fibrillation; Z91.048 Other nonmedicinal substance allergy status; Z88.8 Allergy status to other drugs, medicaments and biological substances; Z86.16 Personal history of COVID-19; Z90.710 Acquired absence of both cervix and uterus; Z79.01 Long term (current) use of anticoagulants; Z79.899 Other long term (current) drug therapy; Z90.49 Acquired absence of other specified parts of digestive tract
CPT/HCPCS: 71045; 74177; 80053; 82270; 85025; 85610; 85730; 86140; 96374; 99284; 99285-25; C9113; J3490; J7030; Q9967

== ENCOUNTER 2023-09-05 22:45 | Emergency (ER) | payer MEDICARE ==
[2023-09-05 23:22] LABS: BASOPHILS ABSOLUTE AUTO 0.06 10^3/uL (0.00-0.10); BASOPHILS PERCENT AUTO 0.5 % (0.0-1.0); EOSINOPHILS ABSOLUTE AUTO 0.41 10^3/uL (0.10-0.30); EOSINOPHILS PERCENT AUTO 3.3 % (1.0-3.0); HEMATOCRIT 27.8 % (37.0-47.0); HEMOGLOBIN 9.1 g/dL (12.0-16.0); IMMATURE GRAN ABSOLUTE AUTO 0.05 10^3/uL (0.00-0.50); IMMATURE GRAN PERCENT AUTO 0.4 % (0.0-5.0); LYMPHOCYTES ABSOLUTE AUTO 3.94 10^3/uL (1.00-4.00); LYMPHOCYTES PERCENT AUTO 32.1 % (20.0-40.0); MEAN CORPUSCULAR HGB CONC 32.7 g/dL (32.0-36.0); MEAN CORPUSCULAR VOLUME 88.5 fL (82.0-92.0); MEAN PLATELET VOLUME 10.1 fL (7.4-10.4); MONOCYTES ABSOLUTE AUTO 0.97 10^3/uL (0.10-0.80); MONOCYTES PERCENT AUTO 7.9 % (2.0-8.0); NEUTROPHILS ABSOLUTE AUTO 6.85 10^3/uL (2.50-7.00); NEUTROPHILS PERCENT AUTO 55.8 % (50.0-70.0); PLATELET COUNT,PLT 312 10^3/uL (150-400); RED BLOOD CELL COUNT 3.14 10^6/uL (3.80-5.50); RED CELL DISTRIBUTION WIDTH 14.9 % (11.5-14.5); WHITE BLOOD CELL COUNT,WBC 12.28 10^3/uL (5.00-10.00)
[2023-09-05 23:33] LABS: ALBUMIN 2.91 g/dL (3.40-5.00); ANION GAP 14.4 mmol/L (5-15); BILIRUBIN TOTAL 0.6 mg/dL (0.2-1.0); CALCIUM 8.2 mg/dL (8.7-10.3); CARBON DIOXIDE,CO2 24.9 mmol/L (21.0-32.0); CREATININE 0.84 mg/dL (0.51-1.17); EST CRCL DRUG DOSING (CG) 47.87 mL/min; POTASSIUM,K 3.3 mmol/L (3.5-5.1); PROTEIN TOTAL,TP 6.2 g/dL (6.4-8.2)
[2023-09-05] MEDS: Sodium Chloride 0.9% 1,000 ML IV ONE (23:45)
[2023-09-06] MEDS: Metoprolol Tartrate 5 MG/5 ML SDV IVPUSH ONE ×3 (00:04→00:33)
[2023-09-06 01:03] VITALS: BP 131/78; PULSE 91
== END 2023-09-06 01:10 | disposition home or self-care (01) ==
LOC: KA.ED 22:45
DX: I48.91 Unspecified atrial fibrillation (principal); I10 Essential (primary) hypertension; Z91.048 Other nonmedicinal substance allergy status; Z88.8 Allergy status to other drugs, medicaments and biological substances; Z79.01 Long term (current) use of anticoagulants; Z79.899 Other long term (current) drug therapy; Z86.16 Personal history of COVID-19; Z90.49 Acquired absence of other specified parts of digestive tract; Z90.710 Acquired absence of both cervix and uterus
CPT/HCPCS: 80053; 84484; 85025; 93005; 96361; 96374; 99285-25; J3490; J7030

== ENCOUNTER 2024-10-15 17:56 | Inpatient (IN) | payer MEDICARE ==
[2024-10-15] MEDS ORDERED: Sodium Chloride 0.9% 10 ML Syringe FLUSH PRN (18:27)
[2024-10-15] MEDS: Diltiazem 25 MG/5 ML SDV IVPUSH ONE (18:39)
[2024-10-15] MEDS: Diltiazem 125 MG in Sodium Chloride 0.9% 100 ML IV SCH (18:51)
[2024-10-15 19:00] LABS: BASOPHILS ABSOLUTE AUTO 0.05 10^3/uL (0.00-0.10); BASOPHILS PERCENT AUTO 0.4 % (0.0-1.0); EOSINOPHILS ABSOLUTE AUTO 0.08 10^3/uL (0.10-0.30); EOSINOPHILS PERCENT AUTO 0.7 % (1.0-3.0); HEMATOCRIT 46.4 % (37.0-47.0); HEMOGLOBIN 15.3 g/dL (12.0-16.0); IMMATURE GRAN ABSOLUTE AUTO 0.03 10^3/uL (0.00-0.04); IMMATURE GRAN PERCENT AUTO 0.2 % (0.0-0.4); LYMPHOCYTES ABSOLUTE AUTO 2.82 10^3/uL (1.00-4.00); LYMPHOCYTES PERCENT AUTO 23.4 % (20.0-40.0); MEAN CORPUSCULAR HEMOGLOBIN 28.5 pg (27.0-31.0); MEAN CORPUSCULAR VOLUME 86.4 fL (82.0-92.0); MEAN PLATELET VOLUME 10.4 fL (7.4-10.4); MONOCYTES PERCENT AUTO 6.6 % (2.0-8.0); NEUTROPHILS ABSOLUTE AUTO 8.28 10^3/uL (2.50-7.00); NEUTROPHILS PERCENT AUTO 68.7 % (50.0-70.0); PLATELET COUNT,PLT 311 10^3/uL (150-400); RED BLOOD CELL COUNT 5.37 10^6/uL (3.80-5.50); WHITE BLOOD CELL COUNT,WBC 12.06 10^3/uL (5.00-10.00)
[2024-10-15 20:13] LABS: ALBUMIN 3.29 g/dL (3.40-5.00); ANION GAP 19.4 mmol/L (5-15); BILIRUBIN TOTAL 0.8 mg/dL (0.2-1.0); CALCIUM 9.4 mg/dL (8.7-10.3); CARBON DIOXIDE,CO2 21.3 mmol/L (21.0-32.0); CREATININE 0.69 mg/dL (0.51-1.17); EST CRCL DRUG DOSING (CG) 57.38 mL/min; POTASSIUM,K 3.7 mmol/L (3.5-5.1)
[2024-10-15] MEDS: Magnesium Sulfate 2 GM/50 mL 2 GM in Premix Bag 1 BAG IV ONE (23:08)
[2024-10-16] MEDS ORDERED: hydrOXYzine HCl 25 MG Tab PO PRN (01:05)
[2024-10-16] MEDS: Rivaroxaban 10 MG Tab PO SCH (01:20)
[2024-10-16 06:29] LABS: APPEARANCE,URINE CLEAR (CLEAR); BILIRUBIN,URINE NEGATIVE (NEGATIVE); COLOR,URINE YELLOW (YELLOW); GLUCOSE,URINE NEGATIVE (NEGATIVE); KETONES,URINE NEGATIVE (NEGATIVE); LEUKOCYTE ESTERASE,URINE NEGATIVE (NEGATIVE); NITRITE,URINE NEGATIVE (NEGATIVE); OCCULT BLOOD,URINE NEGATIVE (NEGATIVE); PROTEIN,URINE NEGATIVE (NEGATIVE); UROBILINOGEN,URINE 0.2 E.U./dL (0.2-1.0)
[2024-10-16 06:33] LABS: BACTERIA,URINE RARE /HPF (NONE TO FEW); EPITHELIAL CELLS,URINE FEW /LPF; OTHER CRYSTALS,URINE RARE /HPF; RBC,URINE 0-5 /HPF (0-5); WBC,URINE 0-5 /HPF (0-5)
[2024-10-16 07:28] LABS: BASOPHILS ABSOLUTE AUTO 0.06 10^3/uL (0.00-0.10); BASOPHILS PERCENT AUTO 0.5 % (0.0-1.0); EOSINOPHILS ABSOLUTE AUTO 0.18 10^3/uL (0.10-0.30); EOSINOPHILS PERCENT AUTO 1.6 % (1.0-3.0); HEMOGLOBIN 14.4 g/dL (12.0-16.0); IMMATURE GRAN ABSOLUTE AUTO 0.02 10^3/uL (0.00-0.04); IMMATURE GRAN PERCENT AUTO 0.2 % (0.0-0.4); LYMPHOCYTES ABSOLUTE AUTO 2.47 10^3/uL (1.00-4.00); LYMPHOCYTES PERCENT AUTO 22.1 % (20.0-40.0); MEAN CORPUSCULAR HEMOGLOBIN 28.5 pg (27.0-31.0); MEAN CORPUSCULAR HGB CONC 32.7 g/dL (32.0-36.0); MEAN CORPUSCULAR VOLUME 87.1 fL (82.0-92.0); MONOCYTES ABSOLUTE AUTO 0.89 10^3/uL (0.10-0.80); NEUTROPHILS ABSOLUTE AUTO 7.57 10^3/uL (2.50-7.00); NEUTROPHILS PERCENT AUTO 67.6 % (50.0-70.0); PLATELET COUNT,PLT 290 10^3/uL (150-400); RED BLOOD CELL COUNT 5.05 10^6/uL (3.80-5.50); RED CELL DISTRIBUTION WIDTH 13.1 % (11.5-14.5); WHITE BLOOD CELL COUNT,WBC 11.19 10^3/uL (5.00-10.00)
[2024-10-16] MEDS ORDERED: Non-Formulary Medication 1 Each (Omeprazole [Omeprazole] 40 MG Capsule.Dr) PO SCH (07:30)
[2024-10-16 07:43] LABS: ANION GAP 14.2 mmol/L (5-15); CALCIUM 8.8 mg/dL (8.7-10.3); CARBON DIOXIDE,CO2 26.7 mmol/L (21.0-32.0); CREATININE 0.69 mg/dL (0.51-1.17); EST CRCL DRUG DOSING (CG) 57.38 mL/min; MAGNESIUM 1.9 mg/dL (1.8-2.4); POTASSIUM,K 3.9 mmol/L (3.5-5.1)
[2024-10-16] MEDS: Diltiazem 120 MG Cap.CD PO SCH (08:52)
[2024-10-16] MEDS: Cholecalciferol (Vitamin D3) 25 MCG Tab PO SCH (08:52)
[2024-10-16] MEDS ORDERED: Non-Formulary Medication 1 Each (Magnesium Oxide/Mag Aa Chelate [Magnesium] 300 MG Capsule PO SCH (09:00)
[2024-10-16] MEDS ORDERED: Fish Oil/Omega-3 Fatty Acids 1 Gm Cap PO SCH (09:00)
[2024-10-16] MEDS: Metoprolol Succinate 25 MG Tab.ER PO SCH (20:02)
[2024-10-16] MEDS ORDERED: Metoprolol Tartrate 25 MG Tab PO SCH (21:00)
[2024-10-17 13:56] VITALS: BP 125/84; PULSE 64
== END 2024-10-17 13:45 | disposition home or self-care (01) | DRG 309 ==
LOC: KA.ED 17:56 → KA.MS 20:50
PROVIDERS: ADMIT Internal Medicine; ATTEND Internal Medicine
DX: I48.91 Unspecified atrial fibrillation (principal); R65.10 Systemic inflammatory response syndrome (SIRS) of non-infectious origin without acute organ dysfunction; Z68.41 Body mass index [BMI] 40.0-44.9, adult; H54.7 Unspecified visual loss; I10 Essential (primary) hypertension; F41.9 Anxiety disorder, unspecified; F32.A Depression, unspecified; E66.9 Obesity, unspecified; Z86.16 Personal history of COVID-19; Z98.49 Cataract extraction status, unspecified eye; Z86.018 Personal history of other benign neoplasm; Z87.01 Personal history of pneumonia (recurrent); Z87.81 Personal history of (healed) traumatic fracture; Z90.49 Acquired absence of other specified parts of digestive tract; Z90.710 Acquired absence of both cervix and uterus; Z90.722 Acquired absence of ovaries, bilateral; Z98.890 Other specified postprocedural states; Z88.8 Allergy status to other drugs, medicaments and biological substances; Z91.048 Other nonmedicinal substance allergy status; Z79.899 Other long term (current) drug therapy; Z79.01 Long term (current) use of anticoagulants
CPT/HCPCS: 36415; 71045; 80048; 80053; 81001; 83735; 83880; 84484; 85025; 87040; 93010; 96365; 96366; 99223-GT; 99233-GT; 99238-GT; 99284; 99285-25; A9270-GY; J3475; J3490; Q3014